=== PATIENT | female | born 1955 | race Hispanic/Latino ===

== ENCOUNTER 2021-01-13 14:41 | Outpatient (CLI) | payer MEDICARE, OTHER | END 2021-01-13 14:42 | disposition home or self-care (01) | LOC: CSHMAMMO 14:41 | PROVIDERS: ATTEND Nurse Practitioner Family | DX: Z12.31 Encounter for screening mammogram for malignant neoplasm of breast (principal) | CPT/HCPCS: 77063; 77067 ==

== ENCOUNTER 2023-09-10 16:23 | Emergency (ER) | payer MEDICARE, MEDICAID ==
[2023-09-10 17:39] LABS: #Basophils 0.02 10x3/uL (0.0-0.2); #Eosinphils 0.04 10x3/uL (0.0-0.5); #Neutrophils 5.57 10x3/uL (1.5-8.4); %Basophils 0.3 % (0.0-2.0); %Eosinophils 0.6 % (0.0-6.0); %Lymphocytes 13.2 % (18.0-47.0); %Monocytes 5.7 % (0.0-10.0); %Neutrophils 79.8 % (40.0-75.0); Hematocrit 40.8 % (34.9-44.5); Hemoglobin 13.7 g/dL (12.0-15.5); Mean Corpuscular HGB CONC 33.6 g/dL (32.0-36.0); Mean Corpuscular Hemoglobin 31.3 pg (27.0-33.0); Mean Corpuscular Volume 93.2 fL (81.6-98.3); Mean Platelet Volume 9.8 fL (7.4-10.4); Platelet Count 236 10x3/uL (150-450); RBC Distribution Width 14.2 % (11.5-14.5); Red Blood Cell (RBC) Count 4.38 10x6/uL (3.90-5.03)
[2023-09-10] MEDS ORDERED: Ondansetron PF 4 MG/2 ML Vial ONE (17:48)
[2023-09-10] MEDS ORDERED: Meclizine HCl 25 MG TAB ONE (17:48)
[2023-09-10] MEDS ORDERED: Dexamethasone 10 MG/ML VIAL ONE (17:48)
[2023-09-10 17:52] LABS: ALT (SGPT) 18 U/L (8-55); AST (SGOT) 23 U/L (5-34); Albumin 3.7 g/dL (3.4-4.8); Alkaline Phosphatase 93 U/L (40-110); Anion Gap 12 mmol/L (10-20); BUN (Urea Nitrogen) 10 mg/dL (9.8-20.1); Bilirubin, Total 0.5 mg/dL (0.2-1.2); Calc. Creatinine Clearance 0 mL/min (70-130); Carbon Dioxide 29 mmol/L (23-31); Chloride 105 mmol/L (98-107); Estimated GFR 65; Globulin 3.5 g/dL (2.4-3.5); Glucose 126 mg/dL (80-115); Lipase 21 U/L (8-78); Magnesium 2.3 mg/dL (1.6-2.6); Potassium 4.5 mmol/L (3.5-5.1); Protein, Total 7.2 g/dL (5.8-8.1); Sodium 141 mmol/L (136-145)
[2023-09-10 17:53] LABS: Troponin I Less than 0.010 ng/mL (< 0.028)
== END 2023-09-10 19:26 | disposition home or self-care (01) ==
LOC: CSHERS 16:23
DX: R42 Dizziness and giddiness (principal); I10 Essential (primary) hypertension; Z79.899 Other long term (current) drug therapy
CPT/HCPCS: 71045; 80053; 83690; 83735; 84484; 85025; 93005; 96361; 96374; 96375; 99284; J1100; J2405; 36415